=== PATIENT | male | born 1975 | race Caucasian/White ===

== ENCOUNTER 2020-01-25 08:20 | Outpatient (CLI) | payer BC, SELFPAY ==
--- NOTE | 2020-02-09 13:47 | WPDPFTINT ---
PFT Interpretation PFT Interpretation: DOS: 01/25/2020 REQUESTING: Dr Talamantes REASON FOR TESTING: Wheezing PULMONARY FUNCTION TESTS Spirometry: Normal FEV1 85%, normal FVC 86%, normal FEV1%. Mild reduction in [id number]%, 65% predicted. No change with bronchodilator. Lung volumes: Normal TLC and RV. Mild increase in airway resistance 174%. Diffusion: DLCO 87%, normal. Flow volume loop: Normal. IMPRESSION: Normal spirometry, lung volumes and diffusion with mild increase in airway resistance. Alejandra Ortiz MD
== END 2020-01-25 08:21 | disposition home or self-care (01) ==
PROVIDERS: PCP Family Medicine; Visit Provider Family Medicine
DX: R06.2 Wheezing (principal)
CPT/HCPCS: 94060; 94726; 94729

== ENCOUNTER → 2021-03-23 01:40 | Outpatient (CLI) | payer BC, SELFPAY ==
[2021-03-24 14:52] LABS: SARS-CoV-2 RNA PCR Negative
== END ==
PROVIDERS: PCP Family Medicine; Visit Provider Internal Medicine Gastroenterology
DX: Z01.812 Encounter for preprocedural laboratory examination (principal); Z20.822 Contact with and (suspected) exposure to COVID-19
CPT/HCPCS: C9803; U0003; U0005

== ENCOUNTER 2021-03-27 00:59 | Day surgery (SDC) | payer BC, SELFPAY ==
[2021-03-27 08:17] VITALS: BP 145/89; PULSE 94; RESP 16; TEMP 36.6; O2SAT 98; BMI 30.1
--- NOTE | 2021-03-27 08:28 | WPDANESEPPF ---
Anes - Initial Pre Proc Eval Procedure: Operation Date: 03/27/21 09:30 Proposed Procedures p Screening Colonoscopy - Koko Henry MD Date/Time: 03/27/21 08:28 Surgeon: Koko Henry MD Pre Op Diagnosis: neoplasm screening Patient Data Age: 45 Gender: M Height: 1.8 m Weight: 98 kg Last Vital Signs Temp 36.6 C 03/27/21 08:17 Pulse 94 03/27/21 08:17 Resp 16 03/27/21 08:17 BP 145/89 H 03/27/21 08:17 Pulse Ox 98 03/27/21 08:17 Allergies Allergy/AdvReac Type Severity Reaction Status Date / Time No Known Allergies Allergy Verified 03/27/21 08:16 Home Medications Medication Instructions Recorded Confirmed Type bimatoprost 0.01 % eye drops 1 drop EACH EYE DAILY 12/19/19 03/27/21 History olmesartan 20 1 tablet PO DAILY #90 tablet 12/05/20 03/27/21 Rx mg-hydrochlorothiazide 12.5 mg tablet Patient hx anesthesia problems: none Family hx anesthesia problems: none PMFSH Past Medical History Medical History (Updated 12/05/20 @ 08:00 by Liz Puri PA-C) Chronic hypertension Congenital cataract Glaucoma Left varicocele Mixed hyperlipidemia Surgical History Surgical History (Updated 12/05/20 @ 07:46 by Liz Puri PA-C) H/O vasectomy History of repair of anterior cruciate ligament of left knee History of tonsillectomy Hx of cataract surgery S/P excision of varicocele Family History Family History Other Family history of osteoarthritis Social History Social History (Updated 12/05/20 @ 07:33 by Yenny Erickson CMA) Social History: Smoking status: Never smoker Second hand tobacco smoke exposure: No Alcohol intake: current Drinks per week: 8 Substance use: never Substance use type: does not use Living arrangements: with family Gender identity (if verbalized by the patient): Male Spiritual care concerns: No Anes - Eval Final PreProcedure Day of Procedure 03/27/21 08:28 Patient weight: obese Heart: regular rate and rhythm Lungs: clear to auscultation and normal air movement Airway: Mallampati scale class II Neurological: alert and oriented Last oral intake: >/= 8 hours ASA classification: III Emergent: no Anesthetic plan: proceed Anesthesia type and monitoring: general GIVS and standard monitoring Informed Consent: The patient's anesthetic plan and its attendant risks and benefits were discussed with the patient/family/POA. Questions were solicited and answers provided to the satisfaction of the patient/family/POA.
[2021-03-27] MEDS: LACTATED RINGERS 1,000 ML 150 ML IV CONT (08:29)
--- NOTE | 2021-03-27 09:09 | PM.HPGS ---
History of Present Illness History of Present Illness Consent: Risks, benefits, and alternatives have been discussed and questions answered. Patient agrees to proceed with procedure. Chief complaint: neoplasm screening Narrative: Tien Otto is a 45 year old male here for first screening colonoscopy Review of Systems Constitutional: Constitutional: Denies headache(s) and Denies weakness Eyes: Eyes: Denies blurry vision ENT: Reports Normal hearing present, Denies headache(s) and Denies neck pain Cardiovascular: Cardiovascular: Denies chest pain and Denies dyspnea Respiratory: Respiratory: Denies dyspnea Gastrointestinal: Gastrointestinal: Reports no additional gastrointestinal complaints Genitourinary: Genitourinary: Denies dysuria Musculoskeletal: Musculoskeletal: Denies neck pain Integumentary/Breasts: Skin/Breast: Denies dry skin Neurologic: Reports Normal hearing present, Denies headache(s) and Denies weakness Psychiatric: Psychiatric: Denies anxiety Endocrine: Endocrine: Denies change in body appearance Hematologic/Lymphatic: Hematologic/Lymphatic: Denies easy bleeding Allergic/Immunologic: Allergic/Immunologic: Denies urticaria PMF Past Medical History Medical History (Updated 12/05/20 @ 08:00 by Liz Puri PA-C) Chronic hypertension Congenital cataract Glaucoma Left varicocele Mixed hyperlipidemia Surgical History Surgical History (Updated 12/05/20 @ 07:46 by Liz Puri PA-C) H/O vasectomy History of repair of anterior cruciate ligament of left knee History of tonsillectomy Hx of cataract surgery S/P excision of varicocele Family History Family History Other Family history of osteoarthritis Social History Social History (Updated 12/05/20 @ 07:33 by Yenny Erickson CMA) Social History: Smoking status: Never smoker Second hand tobacco smoke exposure: No Alcohol intake: current Drinks per week: 8 Substance use: never Substance use type: does not use Living arrangements: with family Gender identity (if verbalized by the patient): Male Spiritual care concerns: No Meds Home Medications and Allergies Home Medications Medication Instructions Recorded Confirmed Type bimatoprost 0.01 % eye drops 1 drop EACH EYE DAILY 12/19/19 03/27/21 History olmesartan 20 1 tablet PO DAILY #90 tablet 12/05/20 03/27/21 Rx mg-hydrochlorothiazide 12.5 mg tablet Allergies Allergy/AdvReac Type Severity Reaction Status Date / Time No Known Allergies Allergy Verified 03/27/21 08:16 Vital Signs Vital Signs - 24 hr 03/27/21 08:17 Temperature 98 F Pulse Rate 94 Respiratory Rate 16 Blood Pressure 145/89 H Pulse Oximetry 98 Exam Const: General: comfortable and no acute distress HENMT: General nose exam: Normal nares present Eyes: General: appearance normal, both eyes and all related structures Neck: Neck: no JVD Resp: Auscultation: clear to auscultation bilaterally Cardio: Rate: regular rate Rhythm: regular rhythm GI: Inspection: non-distended GI Palp: Yes Soft to palpation Skin: General skin exam: normal color Neuro: General: gait normal Speech: normal speech Extrem: General: normal to inspection Psych: Mental Status: mental status grossly normal Assessment and Plan Assessment and plan (1) Screening for colon cancer: Code(s): Z12.11 - Encounter for screening for malignant neoplasm of colon Status: Acute Assessment and Plan: colonoscopy
[2021-03-27 09:27] VITALS: BP 118/75; PULSE 94; RESP 22; O2SAT 94
[2021-03-27 09:37] VITALS: BP 111/82; PULSE 97; RESP 22; O2SAT 97
[2021-03-27 09:47] VITALS: BP 130/96; PULSE 98; RESP 19; O2SAT 100
== END 2021-03-27 09:55 | disposition home or self-care (01) ==
PROVIDERS: PCP Family Medicine; Visit Provider Internal Medicine Gastroenterology
PROC: 0DJD8ZZ Inspection of Lower Intestinal Tract, Via Natural or Artificial Opening Endoscopic (ICD-10-PCS; CPT 45378; principal; 2021-03-27 09:30)
DX: Z12.11 Encounter for screening for malignant neoplasm of colon (principal); K57.30 Diverticulosis of large intestine without perforation or abscess without bleeding; K64.8 Other hemorrhoids; I10 Essential (primary) hypertension; H40.9 Unspecified glaucoma; E78.2 Mixed hyperlipidemia; E66.9 Obesity, unspecified; Z68.30 Body mass index [BMI] 30.0-30.9, adult
CPT/HCPCS: 45378; C9803; J2001; J2704; J7120; U0003; U0005

== ENCOUNTER 2022-01-31 10:32 | Outpatient (CLI) | payer BC, SELFPAY ==
--- NOTE | ~2022-01-31 | US_ITS ---
US abdomen complete EXAMINATION: US Abdomen Complete INDICATION: Abnormal levels of serum enzymes. PROCEDURE: Realtime High Resolution abdomen ultrasound. COMPARISON: No prior studies for comparison FINDINGS: Gallbladder within normal limits. No gallstones, pericholecystic fluid, gallbladder wall t hickening or biliary dilatation. Common bile duct measures 5 mm. Liver echotexture is increased, consistent with fatty infiltration.. Pancreas within normal limits. Pancreatic tail is obscured by bowel gas. Spleen is unremarkeable. Renal echotexture is within norm al limits bilaterally without hydronephrosis, contour deforming mass or renal stone. Right kidney demarcus sures 10.9 cm. Left kidney measures 10.8 cm. Visualized aspects of the aorta and IVC are within normal limits. Portal vein is patent. No sonograph ic Ghosh's sign indicated by the technologist. IMPRESSION: 1: Hepatic steatosis. Reviewed, dictated and finalized at location B. IMPRESSION: 1: Hepatic steatosis.
== END 2022-01-31 10:33 | disposition home or self-care (01) ==
LOC: ANHIMG 10:35
PROVIDERS: PCP Family Medicine; Visit Provider Nurse Practitioner Gerontology
DX: R74.8 Abnormal levels of other serum enzymes (principal); K76.0 Fatty (change of) liver, not elsewhere classified
CPT/HCPCS: 76700

== ENCOUNTER 2023-01-04 09:07 | Emergency (ER) | payer BC, SELFPAY ==
[2023-01-04 09:18] VITALS: BP 128/90; PULSE 85; RESP 16; TEMP 37.1; O2SAT 98
--- NOTE | 2023-01-04 10:29 | ED.URI ---
HPI - URI/Sore Throat General Chief Complaint: Upper Respiratory Infection Stated Complaint: COLD/COUGH Time Seen by Provider: 01/04/23 10:20 Source: patient Mode of arrival: ambulatory Limitations: no limitations History of Present Illness HPI Narrative: Patient presents today with a 6 day history of nasal congestion and sinus pressure, postnasal drip with a 3 day history of cough with slight wheezing. Denies fever shortness of breath. He has been taking TheraFlu with mild relief. Denies history of asthma or COPD. He is a nonsmoker. Related Data Home Medications Medication Instructions Recorded Confirmed bimatoprost 0.01 % eye drops 1 drop ophthalmic (eye) DAILY 12/19/19 01/04/23 (Dash) Allergies Allergy/AdvReac Type Severity Reaction Status Date / Time No Known Allergies Allergy Verified 01/04/23 09:13 Review of Systems Review of Systems: CONSTITUTIONAL: Denies body aches, fever, chills, or sweats. EYES: Denies visual changes, redness, or discharge. ENT: Denies rhinorrhea, or otalgia.+ congestion, sinus pressure, postnasal drip, sore throat CARDIOVASCULAR: Denies chest pain, palpitations, or edema. RESPIRATORY: Denies dyspnea.+ cough, wheezing GASTROINTESTINAL: Denies abdominal pain, nausea, vomiting, or diarrhea. GENITOURINARY: Denies dysuria or hematuria. SKIN: Denies rash, itching, or wounds. MUSCULOSKELETAL: Denies back pain, joint pain, or myalgia. NEUROLOGIC: Denies headache, numbness, tingling, or weakness. PSYCH: Denies depression or anxiety. [facility] Past Medical History Medical History Chronic hypertension Congenital cataract Glaucoma Left varicocele Mixed hyperlipidemia Surgical History Surgical History H/O vasectomy History of repair of anterior cruciate ligament of left knee History of tonsillectomy Hx of cataract surgery S/P excision of varicocele Family History Family History Other Family history of osteoarthritis Social History Social History Social History: Smoking status: Never smoker Second hand tobacco smoke exposure: No Alcohol intake: current Drinks per week: 4 Substance use: never Substance use type: does not use and opiates Living arrangements: with family Occupation/Education: occupation Gender identity (if verbalized by the patient): Male Sexual Orientation (if Verbalized by the Patient): Straight or Heterosexual Spiritual care concerns: No Comments At time of signature, I have reviewed and agree with nursing past medical, surgical, social and family history unless otherwise noted. Please see nursing chart for further information. There is no relevant family history pertinent to the presenting complaint Exam Narrative: GENERAL: Well-appearing, well-nourished, and in no acute distress. HEAD: Normocephalic, atraumatic. EYES: EOMI. No redness or drainage. Conjunctivae normal. ENT: Mucous membranes pink and moist. Nares mild congestion. Normal bilateral nasal turbinates mild rhinorrhea. No frontal or maxillary sinus tenderness. TMs normal bilaterally. Throat normal. Uvula midline. NECK: Normal AROM. Supple. No lymphadenopathy. CHEST: No respiratory distress. Mild expiratory wheezing in the right lung barone. HEART: Regular rate and rhythm. No murmur appreciated. Normal peripheral pulses. EXTREMITIES: Normal range of motion. No edema. SKIN: Warm, dry, no rash. Capillary refill normal. Normal skin turgor. NEURO: No focal deficits. Alert and oriented x3. Gait steady. PSYCH: Normal affect. No signs of depression or anxiety. Course Course Level of Care: Express Care Visit Vital Signs Vital signs: Vital Signs Temperature 98.7 F 01/04/23 09:18 Pulse Rate 85 01/04/23 09:1
== END 2023-01-04 10:37 | disposition home or self-care (01) ==
PROVIDERS: Emergency Provider Nurse Practitioner; PCP Family Medicine
DX: R06.2 Wheezing (principal); J06.9 Acute upper respiratory infection, unspecified; I10 Essential (primary) hypertension; H40.9 Unspecified glaucoma; E78.2 Mixed hyperlipidemia; Z98.52 Vasectomy status
CPT/HCPCS: 99213; G0463

== ENCOUNTER 2023-01-07 13:48 | Outpatient (CLI) | payer BC, SELFPAY ==
--- NOTE | ~2023-01-07 | XR_ITS ---
EXAMINATION: XR chest 2V 01/07/2023 14:05 INDICATION: Pneumonia. Cough. Chest tightness. PROCEDURE: 2 view chest COMPARISON: 02/01/2008 FINDINGS: The lungs are clear. The cardiomediastinal silhouette is within normal limits. There are no pleural effusions. There is no pneumothorax suspected. IMPRESSION: 1: NO ACUTE CARDIOPULMONARY DISEASE. Reviewed, dictated and finalized at location B. E PIPING INSPECTOR
== END 2023-01-07 13:49 | disposition home or self-care (01) ==
PROVIDERS: PCP Family Medicine; Visit Provider Nurse Practitioner Gerontology
DX: J18.9 Pneumonia, unspecified organism (principal)
CPT/HCPCS: 71046

== ENCOUNTER → 2023-02-12 11:12 | Outpatient (CLI) | payer BC, SELFPAY ==
--- NOTE | ~2023-02-12 | CT_ITS ---
Non-contrast CT scan of the Abdomen Clinical indication: Hernia Technique: 2.5 mm axial scans were obtained through the abdomen without intravenous or oral contrast . Dose reduction technique was used on this scan by utilizing automated exposure control and iterativ e reconstruction technique. The dose-length product (DLP) was 709.95 mGy-cm. Findings: Images through the lung bases reveal no abnormalities. There is no evidence of renal or ureteral calculi. The kidneys and the ureters are nondilated. The liver, spleen, pancreas, gallbladder, and adrenals appear normal. There is no aortic aneurysm. Visualized bowel loops are unremarkable. No ascites seen. No hernia identified. Impression: Unremarkable exam. No hernia seen. Reviewed, dictated and finalized at location . Impression: Unremarkable exam. No hernia seen.
== END ==
PROVIDERS: PCP Family Medicine; Visit Provider Surgery
DX: R19.05 Periumbilic swelling, mass or lump (principal)
CPT/HCPCS: 74150

== ENCOUNTER 2023-04-30 08:51 | Outpatient (CLI) | payer BC, SELFPAY ==
--- NOTE | ~2023-04-30 | XR_ITS ---
EXAMINATION:XR cervical spine 4-5V DATE: 04/30/2023 09:14 INDICATION: Anesthesia of the skin TECHNIQUE: AP, lateral, lateral swimmers and odontoid views of the cervical spine are provided. COMPARISON: None FINDINGS: Alignment is normal. The odontoid process is intact. No fracture is identified. The vertebr al body heights are normal. There is mild loss of intervertebral disc space height at C5-6. There is mild facet and uncovertebral joint osteoarthritis at C5-6. Prevertebral soft tissues are normal. IMPRESSION: 1. Mild cervical spondylosis at C5-6 without acute osseous abnormality. Reviewed, dictated and finalized at location A.
== END 2023-04-30 08:52 | disposition home or self-care (01) ==
LOC: ANHIMG 08:53
PROVIDERS: PCP Family Medicine; Visit Provider Family Medicine
DX: M47.812 Spondylosis without myelopathy or radiculopathy, cervical region (principal); R20.0 Anesthesia of skin; R20.2 Paresthesia of skin
CPT/HCPCS: 72050

== ENCOUNTER 2025-04-07 09:45 | Outpatient (CLI) | payer BC, SELFPAY ==
--- NOTE | ~2025-04-07 | XR_ITS ---
AP and lateral views of the right hip Clinical history: Pain Findings: No acute fracture or dislocation is seen. Osseous alignment is anatomic. Right hip joint is intact. Soft tissues are unremarkable. Impression: No significant abnormality is seen. Reviewed, dictated and finalized at location M. Impression: No significant abnormality is seen.
--- NOTE | ~2025-04-07 | XR_ITS ---
XR cervical spine min 6V Ordering provider: Tc Mckeon, [place] History: . neck pain . Comparison: None. FINDINGS: VERTEBRAL BODIES: Normal height and alignment. No visible fracture or subluxation. The dens is intact . DISK SPACES: Narrowing of the disc C5-C6. Narrowing of the foramina and the left side at the level of C5-C6.. Uncovertebral joint osteoarthritic changes of the C5-C6. PARASPINOUS SOFT TISSUES: No prevertebral soft tissue swelling. IMPRESSION: No acute osseous abnormality cervical spine. Degenerative disc disease at the level of C5-C6 with narrowing of the left intervertebral foramen. Reviewed, dictated and finalized at location A. IMPRESSION: No acute osseous abnormality cervical spine. Degenerative disc disease at the level of C5-C6 with narrowing of the left inte rvertebral foramen.
== END 2025-04-07 09:46 | disposition home or self-care (01) ==
LOC: GOSHIMG 09:46
PROVIDERS: PCP Chiropractor; Visit Provider Chiropractor
DX: M54.2 Cervicalgia (principal); M25.551 Pain in right hip
CPT/HCPCS: 72052; 73502